=== PATIENT | female | born 1970 | race Caucasian/White ===

== ENCOUNTER 2023-02-17 10:48 | Outpatient (CLI) | payer BC, SELFPAY ==
--- NOTE | 2023-02-17 10:15 | DI.RAD_ITS ---
Exam(s) XR KNEE LT 4V AP,LAT,ARACELIS,PAT EXAM: XR KNEE LT 4V AP,LAT,ARACELIS,PAT CLINICAL HISTORY: LEFT KNEE PAIN. TECHNIQUE: 2D digital imaging was performed of the left knee. Three images were obtained. Merchant , AP, lateral and PA tunnel views were obtained. COMPARISON: CR Knee 4 vw Min Bilat from 10/15/2020 CR Knee 4 vw Min Bilat from 11/23/2020 FINDINGS: BONES: No acute fracture is present. No bony destructive lesion is seen. JOINTS: Mild narrowing in the medial femoral tibial joint. Small osteophytes are seen at the posteri or patella. There is a small joint effusion. No loose body. SOFT TISSUE: Normal. IMPRESSION: Mild degenerative changes of the left knee. Small joint effusion. DATA REPOSITORY: RADIATION DOSE DELIVERED:
--- NOTE | 2023-02-17 10:15 | DI.RAD_ITS ---
Exam(s) XR KNEE RT 4V AP,LAT,ARACELIS,PAT EXAM: XR KNEE RT 4V AP,LAT,ARACELIS,PAT CLINICAL HISTORY: RIGHT KNEE PAIN. TECHNIQUE: 2D digital imaging was performed of the right knee. Three views obtained. AP, lateral an d PA tunnel views were obtained. COMPARISON: CR Knee 4 vw Min Bilat from 11/23/2020 FINDINGS: BONES: No acute fracture is present. No bony destructive lesion is seen. JOINTS: There is moderate narrowing of the medial femoral tibial joint. Osteophytes are seen at the patellofemoral and medial femoral tibial joint. There is a suprapatellar joint effusion. No joint e ffusion is seen. SOFT TISSUE: Normal. IMPRESSION: Moderate degenerative changes of the right knee. Joint effusion. DATA REPOSITORY: RADIATION DOSE DELIVERED:
== END 2023-02-17 10:49 | disposition home or self-care (01) ==
LOC: DIORS 10:48
PROVIDERS: PCP Student in an Organized Health Care Education/Training Program; Referring Provider Student in an Organized Health Care Education/Training Program; Visit Provider Student in an Organized Health Care Education/Training Program
DX: M17.0 Bilateral primary osteoarthritis of knee (principal)
CPT/HCPCS: 73564

== ENCOUNTER 2023-05-08 15:55 | Outpatient (CLI) | payer BC, SELFPAY ==
--- NOTE | 2023-05-08 15:45 | DI.RAD_ITS ---
Exam(s) XR STANDING ALIGNMENT EXAM: XR STANDING ALIGNMENT CLINICAL HISTORY: TKR Planning. TECHNIQUE: 2D digital imaging was performed. COMPARISON: CR XR KNEE LT 4V AP,LAT,ARACELIS,PAT from 02/17/2023 CR XR KNEE RT 4V AP,LAT,ARACELIS,PAT from 02/17/2023 FINDINGS: 3 views There is moderate narrowing of the medial compartments of both knees. On the right side there also m arginal osteophytes. On the left side there is mild medial subluxation of the femoral condyles on th e tibial plateau. The lateral compartments of both knees exhibit normal height. Both hips appear unremarkable. Ankles unremarkable. Bone density normal. No osseous lesions. IMPRESSION: Degenerative changes in the medial compartments of both knees. DATA REPOSITORY: RADIATION DOSE DELIVERED:
== END 2023-05-08 15:56 | disposition home or self-care (01) ==
LOC: DIORS 05-09 07:47
PROVIDERS: PCP Student in an Organized Health Care Education/Training Program; Visit Provider Physician Assistant
DX: M17.0 Bilateral primary osteoarthritis of knee (principal)
CPT/HCPCS: 77073

== ENCOUNTER 2023-06-16 02:25 | Outpatient (CLI) | payer BC, SELFPAY ==
[2023-06-16 11:49] LABS: HCT 44.9 % (36.0-46.0); HGB 14.9 g/dL (11.2-15.7); MCH 29.4 pg (27.0-33.0); MCHC 33.2 % (32.0-36.0); MCV 89 fL (80-95); MPV 10.4 fL (8.0-11.0); Platelet Count 178 10^3/uL (130-400); RBC 5.07 10^6/uL (3.93-5.22); RDW-SD 39.1 fL; WBC 5.73 10^3/uL (4.4-10.8)
[2023-06-16 12:33] LABS: Anion Gap 5.3 mmol/L (3-11); BUN 15 mg/dL (7-18); CO2 31.7 mmol/L (21.0-32.0); CREATININE 0.7 mg/dL (0.55-1.02); Calcium 9.5 mg/dL (8.5-10.1); Chloride 106 mmol/L (98-107); Estimated GFR 102.07 (mL/min/1.73m2); Glucose 76 mg/dL (74-106); Potassium 3.7 mmol/L (3.5-5.1); Sodium 143 mmol/L (136-145)
== END 2023-06-16 02:26 | disposition home or self-care (01) ==
LOC: LBO 02:26
PROVIDERS: Visit Provider Student in an Organized Health Care Education/Training Program
DX: M17.12 Unilateral primary osteoarthritis, left knee (principal); Z01.812 Encounter for preprocedural laboratory examination
CPT/HCPCS: 36415; 80048; 85027

== ENCOUNTER 2023-06-20 07:03 | Observation (INO) | payer BC, SELFPAY ==
[2023-06-20] VITALS (16 sets, daily range): BP systolic 111–177; BP diastolic 66–107; PULSE 55–80; RESP 13–20; TEMP 35.8–36.7; O2SAT 94–100; BMI 38.2
[2023-06-20] MEDS: Lactated Ringers 1,000 ML 80 ML IV (07:45)
[2023-06-20] MEDS: Acetaminophen 500 MG TAB 1000 MG PO ×3 (08:02→20:45)
[2023-06-20] MEDS: Celecoxib 200 MG CAP 400 MG PO (08:03)
[2023-06-20] MEDS: Gabapentin 300 MG CAP PO ×2 (08:03→20:45)
--- NOTE | 2023-06-20 08:24 | W.ANESPRE ---
General Info Date of Service Date Performed: 06/20/23 Height: 5 ft 3 in Weight: 97.8 kg Body Mass Index (BMI): 38.2 Surgical Procedure: Operation Date: 06/20/23 09:10 Proposed Procedure Side Surgeon p Knee Total Arthroplasty, Cementless CR Left Charlie Ordonez MD Meds Allergies and Home Medications Allergies Allergy/AdvReac Type Severity Reaction Status Date / Time amoxicillin Allergy Intermediate Hives Verified 06/20/23 07:42 daptomycin Allergy Intermediate Skin Rash Verified 06/20/23 07:42 erythromycin base Allergy Intermediate Skin Rash Verified 06/20/23 07:42 Penicillins Allergy Intermediate Itching Verified 06/20/23 07:42 clarithromycin Allergy Mild RASH Verified 06/20/23 07:42 clindamycin Allergy Mild Itching Verified 06/20/23 07:42 levofloxacin Allergy Mild RASH Verified 06/20/23 07:42 liraglutide [From Victoza] Allergy Other (See Verified 06/20/23 07:42 Comment) vancomycin Allergy Itching Verified 06/20/23 07:42 BIOXIN Allergy Unknown Other (See Uncoded 06/20/23 07:42 Comment) Home Medication Medication Instructions Recorded omeprazole 20 mg capsule,delayed 20 mg PO DAILY 02/17/23 release Current Visit Medications: Current Medications Generic Name Dose Route Start Last Admin Trade Name Freq PRN Reason Stop Dose Admin Acetaminophen 1,000 mg 06/20/23 06:00 06/20/23 08:02 Acetaminophen 500 Mg Tab PO 1,000 mg PREOP ANASTASIYA Administration Celecoxib 400 mg 06/20/23 06:00 06/20/23 08:03 Celecoxib 200 Mg Cap PO 400 mg PREOP ANASTASIYA Administration Gabapentin 300 mg 06/20/23 06:00 06/20/23 08:03 Gabapentin 300 Mg Cap PO 300 mg PREOP ANASTASIYA Administration Ringer's Solution 1,000 mls @ 80 mls/hr 06/20/23 06:00 06/20/23 07:45 IV 07/19/23 23:59 80 mls/hr INFUSION ANASTASIYA Administration Tranexamic Acid/Sodium Chloride 1,000 mg in 100 mls @ 600 mls/hr 06/20/23 06:00 IVPB 07/19/23 23:59 PREOP ANASTASIYA Cefazolin Sodium/Dextrose 2 gm in 50 mls @ 100 mls/hr 06/20/23 06:00 Ancef Duplex IVPB 07/19/23 23:59 PREOP ANASTASIYA IV Miscellaneous Supplies 1 each 06/20/23 06:00 Iv Access IV 07/19/23 23:59 DIRECTED ANASTASIYA Sodium Chloride 0 ml 06/20/23 06:00 Normal Saline Flush 10 Ml Syr IV 07/19/23 23:59 PRN PRN Sodium Chloride 0 ml 06/20/23 06:00 Normal Saline 10 Ml Vial IJ 07/19/23 23:59 DIRECTED PRN Sterile Water 0 ml 06/20/23 06:00 Water,Injection,Sterile 10 Ml Vial IJ 07/19/23 23:59 DIRECTED PRN PFSH Active Problems Active Problems: Problem Status Onset Code Arthritis of right knee M17.11 Arthritis of left knee M17.12 Cardiac abnormality Q24.9 Medical History Medical History Hx of ventricular septal defect Congenital-states she has never had any issues with it History of electrocardiogram History of MRSA infection Hidradenitis Surgical History Surgical History S/P foot surgery, right hardware removed History of cholecystectomy History of tonsillectomy History of hysterectomy History of History of right shoulder replacement History of carpal tunnel release Tobacco Smoking/Tobacco Use Status: Never Alcohol Alcohol Intake: current Alcohol intake frequency: holidays/special occasions only Substance Use Substance use: Never Substance use type: does not use Vital Signs and Lab Results Vital Signs Most Recent Vital Signs in EMR: Most Recent Vital Signs Temp Pulse Resp BP Pulse Ox 36.6 C 80 16 163/86 H 99 06/20/23 07:43 06/20/23 07:43 06/20/23 07:43 06/20/23 07:54 06/20/23 07:43 Lab Results Blood Type / Crossmatch: No Data to Display Complete Blood Count: White Blood Count 5.73 10^3/uL (4.4-10.8) 06/16/23 11:41 Red Blood Count 5.07 10^6/uL (3.93-5.22) 06/16/23 11:41 Hemoglobin 14.9 g/dL (11.2-15.7) 06/16/23 11:41 Hematocrit 44.9 % (36.0-46.0) 06/16/23 11:41 Platelet Count 178 10^3/uL (130-400) 06/16/23 11:41 Complete Metabolic Panel: Sodium 143 mmol/L (136-145) 06/16/23 11:41 Potassium 3.7 mmol/L (3.5-5.1) 06/16/23 11:41 Chloride 106 mmol/L (98-107) 06/16/23 11:41 Carbon Dioxide 31.7 mmol/L (21.0-32.0) 06/16/23 11:41 BUN 15 mg/dL (7-18) 06/16/23 11:41 Creatinine 0.7 mg/dL (0.55-1.02) 06/16/23 11:41 Est GFR (CKD-EPI 2020) 102.07 (mL/min/1.73m2) 06/16/23 11:41 Calcium 9.5 mg/dL (8.5-10.1) 06/16/23 11:41 Glucose 76 mg/dL (74-106) 06/16/23 11:41 Liver Function Panel: No Data to Display Coagulation Panel: No Data to Display Cardiac Panel: No Data to Display Arterial Blood Gas: No Data to Display Venous Blood Gas: No Data to Display Pancreas Panel: No Data to Display Thyroid Panel: No Data to Display Infectious Disease: No Data to Display Blood Cultures: No Data to Display Toxicology Panel: No Data to Display Anesthesia Assessment and Plan Anesthesia History Personal History: No History of Anesthesia Complications Family History: No Family History of Anesthesia Complications Exercise Tolerance Exercise Tolerance: Metabolic Equivalents<4 (limited secondary to knee pain) Pertinent Negatives Pertinent Negatives: No Symptoms of GERD, No Major Cardiovascular Symptoms or Complaints, No Major Pulmonary Symptoms or Complaints and No History of CVA/TIA Cardiac & Pulmonary Exam Cardiac Exam: Normal S1/S2 Heart Sounds Pulmonary Exam: Clear Bilateral Breath Sounds Implantable Cardiac Device Does patient have a Pacemaker or an ICD?: No Airway Exam Known Difficult Airway: No Mallampati Class: 3 Mouth Opening: Normal (> 3cm) Thyromental Distance: Greater than 3 cm Neck Range of Motion: Full ROM Neck Circumference: Thick Teeth Condition: Normal Dentition ASA Classification ASA Score: ASA 2 Emergency Case?: No NPO Status NPO Status: NPO Clears >2 hours, Solids >8 hours Anesthesia Plan Resuscitation Status: Full Code Anesthesia Technique: Spinal Anesthesia Airway Planned: Natural Airway Pain Management: Surgeon and patient request nerve block Monitors Used: Standard Monitors
[2023-06-20] MEDS: ceFAZolin 2 GM/50 ML BAG IVPB (09:10)
[2023-06-20] MEDS: TRANEXAMIC ACID/SOD. CHL. 1,000 MG/100 ML BAG 600 MG IVPB (09:28)
--- NOTE | 2023-06-20 09:35 | W.ANESNERVE ---
Nerve Block Single Injection Procedure Date and Time Date Performed: 06/20/23 Procedure Start: 08:50 Location Where Procedure Performed Procedure Location: Day Surgery Unit Reason Performed: Postoperative Analgesia Requesting Provider: Charlie Ordonez Timeout Performed Timeout Performed: Yes Monitoring Used ECG, Blood Pressure, SpO2 and See EMR for corresponding vital signs Sterility Sterility: Hand Hygiene, Surgical Cap, Surgical Mask, Sterile Gloves, Sterile Drape/Sheet and Chlorhexidine Sedation Given During Procedure Sedation Given (Indicate Dose Given): No Sedation given Patient Mental Status Patient Mental Status: Awake Nerve Block 1st Nerve Block: Laterality: Left Block Type: Adductor Canal Ultrasound Image Saved?: Yes Needle / Catheter Used: 100mm SonoPlex II Local Anesthetic Bolus (Indicate Dose Given): Lidocaine used for local infiltration of skin, Injected in 3-5ml increments after negative blood aspiration, Bupivacaine 0.25% Dose:: 10 ml and Exparel Dose:: 10 ml Additives (Indicate Dose Given): None Ultrasound: Sterile probe cover and gel used Nerve Stimulator: Supplement to Ultrasound use and No twitch or parasthesia noted < 0.5 mA Paresthesia: Left (discomfort at start of injection, needle pulled back slightly, and apiration negative, with resolution of discomfort on injection) Paresthesia Duration: Transient Procedure Tolerated: No Complications and Patient tolerated well Procedure Outcome: Successful Performed By: Margarita Pearson
--- NOTE | 2023-06-20 11:07 | W.PM.OP ---
Date of service: 06/20/23 Time of Service: 09:30 Operative Note Operative Note DATE OF PROCEDURE: 06/20/23 PRE-OP DIAGNOSIS: Left Knee Osteoarthritis POST-OP DIAGNOSIS: same PROCEDURE: Left Total Knee Replacement SURGEON: Charlie Ordonez [employer] TECHNICIAN: Dahiana Ramos ANESTHESIA TYPE: Spinal Refer to Anesthesia Record ESTIMATED BLOOD LOSS: 150 PATHOLOGY: none sent TOURNIQUET TIME: 0 COMPLICATIONS: None Patient was transported to: PACU Patient's condition: stable Implants: 1. Depuy Attune Cementless Cruciate Retaining Femoral Component, Size 4 Narrow 2. Depuy Attune Cementless Fixed Bearing Tibial Component, Size 3 3. Depuy Attune 4x7 CR/FB Poly 4. Depuy Attune Patellar Component, Size 32 Indications: I have seen Mary in clinic for symptoms of knee arthritis, confirmed with radiographic findings. She has exhausted nonoperative methods and was having significant limitations in daily function and desired better function and less pain. I discussed the technical details of a knee replacement. I explained the risks of the procedure to include, but not limited to, bleeding, infection, pain, stiffness, fracture, damage to nerves and vessels, damage to muscles and tendons, loosening, need for repeat procedure, blood clot and cardiopulmonary demise. Despite these risks, Mary elected to proceed. Findings: There was significant signs of arthritis mostly involving the trochlea and medial compartment. Procedure Description: Mary was greeted in the preoperative holding area where the correct side was identified and marked. The consent was reviewed with the patient and signed. The history and physical was updated. All questions were answered. Preoperative medications were administered: Acetaminophen 1000mg, Celebrex 400mg, and Gabapentin 300mg. An adductor canal block was then administered by the anesthesia team in the PACU. She was taken back to the operating room. A spinal anesthestic was then administered. The patient was placed into the supine position on the operating room table. A nonsterile tourniquet was placed high onto the leg but only used for cementing. Posts were placed for positioning during the procedure. All bony prominences were well padded. Prophylactic antibiotics in the form of Cefazolin were administered. 1g of Tranxemic Acid was given intravenously within 30 minutes of incision. The left leg was then prepped with Chloraprep and draped in a standard fashion with impervious stockinette. A second prep with Chloraprep was performed prior to application of Iodine impregnated skin protection. A timeout to confirm correct identity, side and site, procedure, allergies, anesthesia, and medical concerns was performed. With the knee in some flexion, a midline incision was made overlying the knee. Full thickness skin flaps were raised once the extensor mechanism was encountered. These were raised medially and laterally. Any bleeding was controlled with electrocautery. Once the extensor mechanism was fully exposed, a medial parapatellar arthrotomy was performed in a flexed position. All bleeding from the arthrotomy and the geniculate arteries was coagulated. A medial subperiosteal peel was performed with electrocautery to the midcoronal plane. The fat pad was removed while keeping the patellar tendon protected. The anterior distal femur synovium was removed for later visualization. The ACL and PCL were resected and the anterior horn of the lateral meniscus was transected. The knee was then flexed with the patella everted. Using a step drill, and based on preoperative templating, the femoral canal was entered. This was done with a step drill without any difficulty. The intramedullary distal femoral cut guide was inserted, set to a 5 degree valgus cut and 9mm cut thickness. The distal femoral cut guide was then held in position and pinned. With the soft tissues protected, the distal cut was performed. This was passed over a few times to ensure a planar cut. I then turned attention to the tibia. The extramedullary guide was placed onto the leg. The distal aspect was slid medial to adjust for position of center of ankle and stay in line with shaft of the tibia. Approximately 3-5 degrees of posterior slope was kept in the proximal cutting guide. The center of the guide was aligned with the PCL. The stylus was used to assess cut thickness. The medial side, most involved side, was set for a 4mm cut. This was then held in position and pinned into place with 2 additional pins and a cross pin for stability. The medial and lateral collateral ligaments were protected and the cut was performed. With this completed, it was assessed and noted to be of appropriate dimensions. The guide was removed. A spacer block was inserted and the knee was brought into extension. The 6mm spacer block provided full extension, without hyperextension and with stability of both the medial and lateral collateral ligaments was assessed. The pins from the femur and the tibia were then removed. The distal femur was then sized. The anterior stylus was placed onto the lateral ridge of the anterior femur. This indicated a size 4 narrow femur. The external rotation of the guide was adjusted to 3 degrees to match the epicondylar axis, perpendicular to [facility]?s line. The 4-in-1 cutting guide was the placed. The posterior medial femur cut was evaluated and appeared of good thickness. The spacer block was inserted underneath the cutting guide and stability was confirmed in 90 degrees of flexion. An andra wing was used to confirm appropriate position of the anterior cut to avoid notching. This cutting guide was ensured to be flush on the cut surface and then pinned into place with headed pins. While protecting the soft tissues, quad tendon, and collateral ligaments, the anterior and posterior cuts were performed with a saw. The central two pins were removed and the posterior and anterior chamfers were cut next. The notch-cutting guide was placed. This was pinned to lateralize the femoral component as much as possible while keeping it flush on the cut surface. This was then pinned into position. A reciprocating saw was used to make the notch cut. A rasp smoothed the cut surfaces. The medial and lateral menisci were removed. A trial femoral component was then inserted, impacted down to the cut surfaces, and the lug holes were drilled. A provisional trial tibial component was placed and the knee was brought through range of motion. The polyethylene was trialed until there was good flexion and extension with excellent stability to the medial and lateral collaterals. The patella was tracking without thumbs. A size 7mm polyethylene component provided the best range of motion and stability with less than 2mm gapping with medial and lateral stress and full extension without significant hyperextension. The tibial cut surface was fully exposed. The tibia was then sized as a 3. The tibia had been previously marked during trialing to correspond to the center of the tibial component to help with rotation. The trial was aligned to this dahiana, approximately rotated to the medial 1/3rd of the tibial tubercle. The trial was pinned into place. The tibia was prepared with a reamer and a keel punch and lug holes. The knee was then brought into extension and the patella was measured as 22mm. Using the patellar clamp and cut guide, this was resected to a flat surface with at least 13mm of thickness remaining. The size 32 patella fit the best. This was oriented and then clamped into position. The lugs were drilled. The trial components were removed. The final components were opened on the back table. The periosteal and capsular tissues, especially posteriorly, around the knee were then systematically injected with a periarticular cocktail consisting of 246mg of Ropivacaine, 0.5mg of Epinephrine, 0.08mg of Clonidine, and 30mg of Ketorolac, diluted to 100cc. On the back table, with the implants opened, the cement was mixed. One batch of high viscosity cement was prepared with vacuum assistance. After the cement was ready a small amount was placed on the cut surface of the patella and the patellar button was clamped into position and held. While the cement was hardening, the cementless knee components were placed. Starting with the tibial component, the tibia was subluxed anteriorly and the lug holes of the component were lined up. The tibia was then impacted with an impactor and mallet until the tibial component was in contact with the tibia. The final polyethylene component was inserted. Then, the femoral component was inserted. The lug holes were aligned and the component was impacted into position. The knee was irrigated with Surgiphor Betadine solution. This was allowed to sit in the knee for 3 minutes and then it was irrigated out with saline. After the cement had finally cured, approximately 15min, the clamp was removed from the patella and the knee was taken through range of motion. The patella was tracking with a no-thumbs technique. The capsule was then reapproximated with a No. 1 Vicryl at multiple locations. The capsule was finally closed with a No. 2 Stratafix, barbed suture. The second dosing of 1g TXA was started. Deep tissues were then reapproximated with 0 Vicryl and 2-0 Vicryl. The skin was closed with a running 3-0 Monocryl in a subcuticular fashion. This was reinforced with skin glue. A Mepilex silver dressing was applied along with a [id number] JOHNNY wrap. A CryoCuff was applied. Mary was transferred to the hospital bed without difficulty an suffering no apparent complication. She has a good prognosis. Physical therapy will start today and without restrictions, weight-bearing as tolerated. Aspirin 81mg BID will be used for DVT prophylaxis.
--- NOTE | 2023-06-20 11:24 | W.ANESPOSTOP ---
Postoperative Evaluation Date, Time and Location Date Performed: 06/20/23 Time Performed: :24 Patient Location: PACU Vital Signs Most Recent Imported Vital Signs: Most Recent Vital Signs Temp Pulse Resp BP Pulse Ox 36.5 C 60 14 134/105 H 100 06/20/23 11:12 06/20/23 11:12 06/20/23 11:12 06/20/23 11:12 06/20/23 11:12 Pain Score Most Recent Pain Score: Most Recent Pain Score Pain Level 0 06/20/23 11:12 Assessment Mental Status: Awake (Alert & Oriented to Patient Baseline) Airway and Respiratory Function: Patent airway with normal (patient baseline) respiratory exam Cardiovascular Function: Hemodynamically Stable Hydration Status: Adequately Hydrated Nausea & Vomiting: No Nausea or Vomiting Pain: Pt. Denies Any Pain Peripheral Nerve Block: Regional nerve block not resolved at time of post operative discharge
--- NOTE | 2023-06-20 14:10 | PT.INIE ---
PT Notes Physical Therapy Inpatient Initial Evaluation Date: 06/20/2023 Referring Doctor: JOSE A Woodall PT Orders: PT CONSULT: S/p Ortho Surgery Precautions: Fall. Standard. WBAT on left LE with AD. Patient Profile/Admitting Diagnosis: Cassidy is a 53-year-old female with degenerative joint disease of the left knee and status post left total knee arthroplasty on postoperative day 0. PMHX: Medical History History of electrocardiogram History of MRSA infection Hidradenitis Surgical History History of tonsillectomy History of hysterectomy History of History of right shoulder replacement History of carpal tunnel release Social History/Home Situation: Lives alone in a private home with one-step to enter. Will be at daughter's house for the first week as she recovers. Daughter's house as 4 steps to enter with a rail on one side. Equipment Owned/DME: FWW, SPC Subjective: Achy on the area just above the L knee. Agreeable to be mobilized out of bed. Denied headache, chest pain, and lightheadedness throughout session. Objective: General Observation: JOHNNY wraps on left LE. Cryo/Cuff in left knee. SCDs to B legs. TEDS on R leg and foot. Mental Status: Alert and oriented as to person, place, time, and purpose. Able to pay attention, focus, and respond appropriately. Pain: 2-3/10 in the L knee and distal L thigh Vital Signs: WNL as closely monitored by nursing staff ROM: Right Lower Extremity: Hip flexion WFL. Hip abduction WFL. Knee flexion WFL. Ankle dorsiflexion WFL. Ankle plantarflexion WFL. Left Lower Extremity: Hip flexion WFL. Hip abduction WFL. Knee flexion 10 degrees to 90 degrees ACTIVELY while seated at edge of bed. Extension -10 degrees. Ankle dorsiflexion WFL. Ankle plantarflexion WFL. Strength: Right Lower Extremity: Hip flexors 5/5. Hip abductors 5/5. Knee flexors 5/5. Knee extensors 4/5. Ankle dorsiflexors 5/5. Ankle plantarflexors 5/5. Left Lower Extremity: Hip flexors 4/5. Hip abductors 4/5. Knee flexors 3-/5. Knee extensors 3-/5. Ankle dorsiflexors 4/5. Ankle plantarflexors 4/5. Bed Mobility/Transfers: Minimal cueing provided for use of B hands as needed for support, movement sequence, AD management, and posture to reduce fall risk and minimize pain report Supine to sit contact-guard assist with HOB at 30 degrees Sit to stand contact-guard assist with FWW Stand to sit contact-guard assist with FWW Bed to reclining contact-guard assist with FWW Gait: Facilitated safe and correct performance of level surface ambulation covering a distance of 50 feet with step through reciprocal heel-toe gait pattern using front wheel walker with contact-guard assist and wheelchair follow provided. Minimal verbal cues provided for AD management, limb advancement, and posture to reduce fall risk and minimize pain report. Balance: Static Sitting: Normal Dynamic Sitting: Normal Static Standing: Fair Dynamic Standing: Fair Special Tests: Mobility Limitations Standardized Measure [facility] AM-PAC 6 clicks Basic Mobility Inpatient Short Form: Raw Score: 18 CMS Score: 47% deficit Informed Consent/Education: Patient was instructed in purpose of PT consult and plan of care. Agreeable to proceed with established PT POC to achieve personal goals. Trained patient with correct performance of exercises below to maximize motor control, joint flexibility, soft tissue extensibility of the [] knee musculature: Access Code: [email or web address] URL: [email or web address] Date: 06/20/2023 Prepared by: Amy Chris Exercises - Supine Quad Set - 1 x daily - 7 x weekly - 1 sets - 10 reps - 5 hold - Supine Heel Slide - 1 x daily - 7 x weekly - 1 sets - 10 reps - 5 hold - Supine Ankle Pumps - 1 x daily - 7 x weekly - 1 sets - 10 reps - 5 hold - Small Range Straight Leg Raise - 1 x daily - 7 x weekly - 1 sets - 10 reps - 5 hold - Seated March - 1 x daily - 7 x weekly - 1 sets - 10 reps - 5 hold Assessment: Patient requires the use of FWW for all mobility ADL performance to maximize independence and reduce fall risk. Patient presents with clinical signs and symptoms consistent with current/admitting diagnoses that have resulted to mobility limitations, gait instability, generalized weakness, and overall ADL decline as demonstrated by the following impairment level findings: 1. Decreased strength to L LE major muscle groups 2. Impaired sitting/standing balance 3. Impaired activity tolerance 4. Limitation of joint range of motion in L knee Impairments are contributing to the following functional limitations: 1. Decline in bed mobility skills 2. Decline in transfer skills 3. Difficulty with ambulation without assistive device and physical assistance 4. Increased completion time for mobility ADL performance 5. Increased risk for falls 6. Difficulty with managing steps alone safely Patient is assessed as a 33917 moderate complexity based on the following: History: 53-year-old female with past medical history as indicated above Examination: Demonstrable impairment in strength, balance, and mobility level with underlying impairments and functional limitations as exhibited above as well as deficit score of 47% utilizing the [facility] Mobility Inpatient Short Form Presentation: Evolving Decision Makin moderate complexity Goals: Goals X1 week 1. Supine-Sit independent 2. Sit-Supine independent 3. Sit-Stand independent 4. Stand-Sit independent with FWW 5. Bed-Chair independent with FWW 6. Chair-Bed independent with FWW 7. Independent gait on level surface with use of FWW for at least 300 feet without report of pain nor dyspnea 8. Independent stair negotiation while holding onto B rails for at least 5 steps without report of pain nor dyspnea 9. Independent with home exercise program 10. Good static and dynamic standing balance/tolerance Plan of Care/Treatment Plan: 1-2x/day, 7 days/week x 1 week. Plan of care has been reviewed with the [employer] providing the service under Physical Therapy direction. Initiate Physical Therapy intervention for pain management as needed, strengthening, bed mobility, transfers, gait, stairs, balance training, and use of assistive device. Prior to discharge tomorrow: Review and re-educate on HEP. Perform stairs training. Perform level surface ambulation using AD to patient's tolerance/ at least 150 feet. DISCHARGE RECOMMENDATIONS: [] Home with no services [] [] Home with services [specify] [X] Home with outpatient PT. home when medically cleared by orthopedic surgeon. Recommend outpatient PT services in order to optimize functional mobility outcomes and facilitate return to independent community ambulation without an assistive device. [] SNF for continued rehabilitation [] [] [facility] [] [] SNF versus LTC based on ability to participate and progress [] TREATMENT CODE/TIME: 82448 x 1 unit (16:46-17:07). Thank you for the opportunity to participate in the care of this patient. Amy Chris PT, DPT, CLT [facility] [place], [place]
[2023-06-20] MEDS: Normal Saline Flush 10 ML SYR (15:13)
[2023-06-20] MEDS: ceFAZolin 1 GM/50 ML BAG IVPB ×2 (15:13→20:58)
[2023-06-20] MEDS: Tranexamic Acid 650 MG TAB 1300 MG PO (20:46)
[2023-06-20] MEDS: Celecoxib 200 MG CAP PO (20:48)
[2023-06-20] MEDS: Aspirin E.C. 81 MG TABEC PO (20:48)
[2023-06-21 03:39] VITALS: BP 114/75; PULSE 67; RESP 18; TEMP 36; O2SAT 98
[2023-06-21] MEDS: Normal Saline Flush 10 ML SYR IVP (05:20)
[2023-06-21] MEDS: ceFAZolin 1 GM/50 ML BAG IVPB (05:21)
--- NOTE | 2023-06-21 07:37 | DSE_ITS ---
Date of service: 06/21/23 Time of Service: 07:37 DS: Diagnosis Discharge Diagnosis (1) Arthritis of left knee: Status: Acute Discharge Plan Disposition Patient Disposition: Home Condition: Good Discharge Details Reason For Visit: OA L Knee Admit Date/Time: 06/20/23 07:03 Admit Provider: Charlie Ordonez Attending Provider: Charlie Ordonez Primary Care Provider: [facility] Hospital Course: Patient was admitted to the medical/surgical floor following the procedure. The surgery was tolerated well without any notable medical, surgical, or anesthetic complications. Mobilization began postoperatively. He was voiding spontaneously. Vitals were stable. Physical therapy worked with the patient and was cleared for discharge home. No acute medical issues. Pain was controlled on oral regimen. Home Meds and New Rx's Prescriptions: New celecoxib 200 mg capsule 200 mg PO BID PRN (Reason: pain) Qty: 60 1RF aspirin 81 mg tablet,delayed release (DR/EC) 81 mg PO BID Qty: 60 0RF acetaminophen 500 mg tablet 1,000 mg PO Q8H PRN (Reason: pain) Qty: 90 3RF pantoprazole 40 mg tablet,delayed release (DR/EC) 40 mg PO DAILY Qty: 30 0RF dexamethasone 4 mg tablet 4 mg PO DAILY Qty: 2 0RF Rx Instructions: Starting Post-Operative Day #1 (Day after surgery) oxycodone 5 mg tablet 5 mg PO Q4H PRNQty: 18 0RF gabapentin 300 mg capsule 300 mg PO QHS Qty: 14 0RF Continued omeprazole 20 mg capsule,delayed release(DR/EC) 20 mg PO DAILY Discharge Instructions Additional Instructions: Total Knee Discharge Instructions Activity: The most important activity is to walk and to work on gentle motion (both flexion and extension). You should try to take short walks a few times a day. It is important that when resting you work on keeping the knee straight. Avoid putting a pillow behind the knee as this will encourage flexion. Work on range of motion exercises as provided by Physical Therapy. - Start outpatient physical therapy within 2 weeks. - You should wear the ANH hose on both legs for 2 weeks. You may remove these at night. You may also use any compression sock in place of the ANH hose. - Utilize [employer] to review exercises, see videos on exercises and obtain basic information pertaining to your surgery and your recovery. Dressing: Remove the Alexey wrap by 2 days after your surgery and put on the ANH stocking given to you from the hospital. Keep the surgical dressing (underneath the ALEXEY wrap) in place for at least one week. After the first week it may be removed and replaced with light gauze and tape or nothing. The wound and dressing may get wet after 3 days but avoid soaking the dressing or otherwise it will need to be changed. Many people prefer covering the dressing with cling wrap (saran wrap) to minimize it from getting soaked. If it gets wet, just pat dry. If it starts to peel off then it will need to be changed. Medications: - You should take Tylenol and anti-inflammatory Celebrex as your primary pain control medications. If the Celebrex is too expensive or not covered, please call the office for another alternative (Advil/Ibuprofen or Naproxen/Aleve) - You have been prescribed a stronger pain medication Oxycodone for breakthrough pain, take as needed as prescribed. - You have also been prescribed a stomach acid reduction agent Pantoprozole to help reduce stomach acid and reflux. - You have been prescribed Gabapentin to take at night for restlessness and nerve pain. - You will be taking Aspirin 81mg twice a day for DVT prevention unless instructed otherwise. - You have also been prescribed Decadron to take to control post-operative nausea and pain. You will start this tomorrow. - If you have constipation you should take Colace or Miralax (both [id number]). It takes most people 3-4 days to have a bowel movement. Follow-up: 2 weeks If you have any acute concerns or questions, please do not hesitate to contact the office at [phone]. You may contact Dr. Ordonez with any questions after hours through the hospital at [phone] or on his cell phone at [phone]. Referrals: Charlie Ordonez MD [ [facility] STAFF PHYSICIAN] - Activity:: Activity as Tolerated Equipment/Supplies:: Walker Diet:: As Tolerated Discharge Orders Discharge Orders: Discharge Order (Routine); Ordered 06/21/23 Ordered By: Charlie Ordonez DS: Summary Time Spent with Patient providing and/or coordinating discharge services: Less than 30 minutes Status at Discharge Functional status at discharge: uses cane/walker Overall status at discharge: patient is not back to baseline Mental Status: mental status grossly normal Speech and Movement: speech and movement normal Mood: congruent mood Affect: normal affect Quality:SDOH Health Related Social Needs: No Data to Display Exam Narrative Exam Narrative: Sitting up in the chair. No acute distress. Alert and orient x 3. Left lower extremity has a Alexey wrap in place. No drainage. She is able demonstrate active knee extension and flexion along with straight leg raise. She is able to actively dorsiflex and plantarflex ankle as well as extend and flex the great toe. Sensation intact to light touch over the deep and supe rficial peroneal nerve and tibial nerve. Psych Mental Status: mental status grossly normal Speech and Movement: speech and movement normal Mood: congruent mood Affect: normal affect DS: Data Vitals/I&O Vitals and I&O: Vital Signs Temperature 36.0 C L 06/21/23 03:39 Temperature Source Tympanic 06/21/23 03:39 Pulse 67 06/21/23 03:39 Pulse Rhythm Regular 06/21/23 04:23 Respiratory Rate 18 06/21/23 03:39 Respiratory Effort Normal, Non-Labored 06/21/23 04:23 Respiratory Depth Normal 06/21/23 04:23 Respiratory Pattern Normal 06/21/23 04:23 Blood Pressure 114/75 06/21/23 03:39 Blood Pressure Mean 124 06/20/23 08:50 Blood Pressure Position Supine 06/20/23 08:50 Pulse Oximetry 98 06/21/23 03:39 Respiratory End-tidal CO2 41 06/20/23 11:27 Oxygen Delivery Method Room Air 06/21/23 03:39 Oxygen Flow Rate 0 06/21/23 03:39 Pain Level 0 06/20/23 22:56 Comment Misael Pearson CRNA assisted by Carline Zapata RN 06/20/23 08:50 Intake & Output 06/20/23 06/20/23 06/21/23 11:59 23:59 11:59 Intake Total 450 / 1150 700 / 1150 Output Total 150 / 550 400 / 550 Balance 300 / 600 300 / 600 Weight 97.8 kg 97.8 kg Intake: IV 450 / 650 200 / 650 Oral 500 / 500 Output: Urine 400 / 400 Estimated Blood Loss 150 / 150 Other: Urine Color Yellow Urine Appearance Clear Clear Urine Odor Normal Comment unclear amount or color, no hat in toilet. per patient voided in toilet. Stool Size Moderate Emesis Description None Voiding Methods Bedside Commode Toilet PFSH All Active Problems Arthritis of right knee (Acute) Arthritis of left knee (Acute) s/p L TKA (06/20/23) Cardiac abnormality (Acute) VENTRAL DEFECT Medical History Hx of ventricular septal defect Congenital-states she has never had any issues with it History of electrocardiogram History of MRSA infection Hidradenitis Surgical History S/P foot surgery, right hardware removed History of cholecystectomy History of tonsillectomy History of hysterectomy History of History of right shoulder replacement History of carpal tunnel release Social History Smoking/Tobacco Use Status: Never Smoking risk assessment performed?: Yes Alcohol Intake: current Alcohol Intake frequency: holidays/special occasions only Drug use: Never Substance use type: does not use Housing: house Do you feel safe at home: Yes Do you feel safe in your relationship?: Yes Time Spent with Patient Time Spent with Patient: <45 minutes Time was spent: obtaining and/or reviewing separately otained hiistory, indepentently interpreting results and counseling the patient
[2023-06-21 07:51] VITALS: BP 117/80; PULSE 69; RESP 20; TEMP 37.1; O2SAT 99
[2023-06-21] MEDS: Celecoxib 200 MG CAP PO (08:15)
[2023-06-21] MEDS: Acetaminophen 500 MG TAB 1000 MG PO (08:15)
[2023-06-21] MEDS: Omeprazole 20 MG CAPCR PO (08:15)
[2023-06-21] MEDS: Dexamethasone 4 MG TAB PO (08:15)
[2023-06-21] MEDS: Aspirin E.C. 81 MG TABEC PO (08:15)
[2023-06-21 11:17] VITALS: BP 122/77; PULSE 76; RESP 18; TEMP 37.2; O2SAT 98
--- NOTE | 2023-06-21 11:43 | PT.INTREAT ---
PT Notes Visit Reasons: OA L Knee Date: 06/21/2023 PRECAUTIONS: Fall. Standard. WBAT on left LE with AD. SUBJECTIVE: Pt in recliner when approached for therapy this morning, pt agreed to participating with therapy session. OBJECTIVE: ? PAIN: surgical pain ? Therapeutic Activities 38505: Direct one-on-one instruction in dynamic activities to improve functional performance. ?? BED MOBILITY/TRANSFERS? Rolling L/R: independent Supine-sit: ? ?independent? Sit-supine: ? ?independent? Sit-stand: ? ?independent ? Stand-sit: ?? independent? Bed-Chair:? ? independent? Chair-bed: independent Provided skilled cues and instruction on performance and technique throughout. Gait Training 41449: Direct one-on-one instruction and skilled instruction in: Employing an assistive device Modified weight-bearing status Movement sequencing Turning and movement with proper form Provided verbal cues for equipment management and technique Provided instruction in gait pattern Patient education regarding pacing and breathing techniques to maximize activity tolerance? GAIT? Assistive Device: ??FWW ? Weight bearing: WBAT Assist: ?Supervision? Distance:?? 600'? Deviation: ? Antalgic gait? STAIRS:? ? 6x4, 4x6 supervision? ? Therapeutic Exercises 92900: Direct one-on-one instruction in therapeutic exercises to develop strength, endurance, range of motion and flexibility. Exercises Provided skilled instruction in proper exercise performance Provided skilled manual cues to facilitate proper muscle recruitment and/or form: Access Code: [email or web address] URL: [email or web address] Date: 06/20/2023 Prepared by: Amy Chris Exercises - Supine Quad Set - 1 x daily - 7 x weekly - 1 sets - 10 reps - 5 hold - Supine Heel Slide - 1 x daily - 7 x weekly - 1 sets - 10 reps - 5 hold - Supine Ankle Pumps - 1 x daily - 7 x weekly - 1 sets - 10 reps - 5 hold - Small Range Straight Leg Raise - 1 x daily - 7 x weekly - 1 sets - 10 reps - 5 hold - Seated March - 1 x daily - 7 x weekly - 1 sets - 10 reps - 5 hold ? ASSESSMENT:?Pt education about heel strike during gait to maintain knee extension, tolerated activity well without pain aggravation during session. reapplied bandage to remove crease and velcro contact with skin for increased comfort. PLAN: Possible DC, Home with outpatient PT. TREATMENT CODE/TIME: 27053s9 30mins (10:40-11:10am)
--- NOTE | 2023-06-21 13:11 | NUR.NOTE ---
Nursing Note: DC home with daughter via private vehicle, pt has all personal belongings and denies further questions regarding DC instructions, pt escorted to main entrance via WC with staff.
== END 2023-06-21 12:59 | disposition home or self-care (01) ==
LOC: MS 15:19 → PDS 20:07
PROVIDERS: Admitting Provider Student in an Organized Health Care Education/Training Program; Visit Provider Student in an Organized Health Care Education/Training Program
PROC: (CPT 27447; principal; 2023-06-20 09:00)
DX: M17.12 Unilateral primary osteoarthritis, left knee (principal); Q21.0 Ventricular septal defect
CPT/HCPCS: 27447; 76942; 97116; 97162; 97530; C1776; C9290; G0378; J0665; J0690; J1100; J2001; J2250; J2371; J2401; J2405; J2704; J8540

== ENCOUNTER 2023-07-06 15:23 | Outpatient (CLI) | payer BC, SELFPAY ==
--- NOTE | 2023-07-06 11:15 | DI.RAD_ITS ---
Exam(s) XR KNEE LT 1V XR STANDING ALIGNMENT EXAM: XR STANDING ALIGNMENT and XR knee LT 1 V CLINICAL HISTORY: F/U LEFT TKA. TECHNIQUE: 2D digital imaging was performed. Five images were obtained. COMPARISON: CR XR KNEE RT 4V AP,LAT,ARACELIS,PAT from 02/17/2023 CR XR KNEE LT 4V AP,LAT,ARACELIS,PAT from 02/17/2023 CR XR STANDING ALIGNMENT from 05/08/2023 FINDINGS: BONES: The hips are well maintained. There are stable findings of a left total knee replacement. Th e orthopedic hardware appears in good position. No suspicious lucencies are seen in or about the ort hopedic hardware. There again seen degenerative changes in the right knee particularly the medial fe moral tibial joint where there is joint space narrowing and osteophytes present. The ankles are well maintained.There is no significant leg length discrepancy. SOFT TISSUE: There is persistent mild edema seen around the left knee. IMPRESSION: 1. Left total knee replacement. 2. Stable degenerative changes in the right knee. DATA REPOSITORY: RADIATION DOSE DELIVERED:
== END 2023-07-06 15:24 | disposition home or self-care (01) ==
LOC: DIORS 15:23
PROVIDERS: Visit Provider Student in an Organized Health Care Education/Training Program
DX: Z96.652 Presence of left artificial knee joint (principal); Z47.1 Aftercare following joint replacement surgery
CPT/HCPCS: 73560; 77073

== ENCOUNTER 2024-06-20 13:55 | Outpatient (CLI) | payer BC, SELFPAY ==
--- NOTE | 2024-06-20 13:00 | DI.RAD_ITS ---
Exam(s) XR KNEE LT 2V AP,LAT EXAM: XR KNEE LT 2V AP,LAT CLINICAL HISTORY: ANNUAL F/U L TKA. TECHNIQUE: 2D digital imaging was performed. Two images were obtained. AP and lateral views were ob tained. COMPARISON: CR XR KNEE LT 4V AP,LAT,ARACELIS,PAT from 02/17/2023 CR XR STANDING ALIGNMENT from 07/06/2023 CR XR KNEE LT 1V from 07/06/2023 FINDINGS: BONES: There are stable post operative changes of a left total knee arthroplasty present. No fractur e or dislocation. JOINTS: The orthopedic hardware is in good position. No evidence of hardware loosening. SOFT TISSUE: Normal. IMPRESSION: Stable left total knee arthroplasty. DATA REPOSITORY: RADIATION DOSE DELIVERED:
== END 2024-06-20 13:56 | disposition home or self-care (01) ==
LOC: DIORS 13:56
PROVIDERS: Visit Provider Student in an Organized Health Care Education/Training Program
DX: Z96.652 Presence of left artificial knee joint (principal); Z47.1 Aftercare following joint replacement surgery
CPT/HCPCS: 99213; 73560